=== PATIENT | male | born 1980 | race Caucasian/White ===

== ENCOUNTER 2017-07-03 20:01 | Emergency (ER) | payer OTHER ==
[~2017-07-03] VITALS: Ht 182.9 cm; Wt 91.0 kg
[2017-07-03 20:23] VITALS: TEMP 36.9; Ht 182.9 cm; Wt 91.0 kg
[2017-07-03] MEDS ORDERED: GLC/500 PO (20:33)
[2017-07-03] MEDS ORDERED: GLIP5TAB11 PO ×3 (20:33→23:09)
[2017-07-03] MEDS ORDERED: SODIUM CHLORIDE 0.9% 1000ML 2,000 ML IV STA (20:48)
[2017-07-03 20:58] LABS: BASO % 0.3 %; BASO ABS # 0.04 K/uL (0-0.2); EOS % 3.4 %; EOS ABS # 0.47 K/uL (0-0.5); HEMATOCRIT 44.5 % (42-52); HEMOGLOBIN 16.3 g/dL (14.0-18.0); IG# 0.05 K/uL (0.00-0.02); LYMPH % 27.8 %; LYMPH ABS # 3.89 K/uL (1.2-3.4); MEAN CELL VOLUME 81.2 fL (80-100); MEAN CORPUSCULAR HEMOGLOBIN 29.7 pg (25-34); MEAN CORPUSCULAR HGB CONC 36.6 g/dl (32-36); MEAN PLATELET VOLUME 11.8 fL (7.4-10.4); MONO % 7.3 %; MONO ABS # 1.02 K/uL (0.11-0.59); NEUT % 60.8 %; NEUT ABS # 8.52 K/uL (1.4-6.5); PLATELET COUNT 208 K/uL (130-400); RED CELL DISTRIBUTION WIDTH CV 12.7 % (11.5-14.5); RED CELL DISTRIBUTION WIDTH SD 37.2 fL (36.4-46.3); WHITE BLOOD COUNT 13.99 K/uL (4.8-10.8)
[2017-07-03 21:15] LABS: ALBUMIN 4.1 gm/dl (3.4-5.0); CALCIUM 9.2 mg/dl (8.5-10.1); CREATININE 1.36 mg/dl (0.60-1.40); POTASSIUM 4.2 mmol/L (3.5-5.1); TOTAL PROTEIN 7.8 gm/dl (6.4-8.2)
[2017-07-03] MEDS ORDERED: NovoLIN-R INSULIN PER UNIT CHARGE SQ STA (21:17)
[2017-07-03 21:18] VITALS: O2SAT 98
--- NOTE | 2017-07-03 21:49 | DIAGNOSTIC IMAGING REPORT ---
CHEST 2 VIEWS ROUTINE CLINICAL HISTORY: cough, eval PNA dyspnea COMPARISON STUDY: No previous studies for comparison. FINDINGS: The bones soft tissues and hemidiaphragms are normal. The cardiomediastinal silhouette is normal. The lungs are clear. The pulmonary vasculature is normal. IMPRESSION: Negative chest. The above report was generated using voice recognition software. It may contain grammatical, syntax or spelling errors. Electronically signed by: Matt Chávez M.D. 07/03/2017 9:48 PM Dictated Date/Time: 07/03/2017 9:48 PM
[2017-07-03] MEDS ORDERED: METF1000 PO ×2 (23:07→23:09)
--- NOTE | 2017-07-03 23:10 | EMERGENCY ROOM VISIT NOTE ---
History First contact with patient: 20:39 Chief Complaint: HYPERGLYCEMIA Stated Complaint: BLOOD SUGAR HIGH Nursing Triage Summary: pt states he has had diabetes for "a couple years." states he takes metformin and glipizide. states he has been out of glipizie and states "i wasn't taking the metformin either because they work together." c/o blurry vision, thirst, frequent urination. pt alert and oriented x4, breathing WNL. History of Present Illness The patient is a 36 year old male who presents to the Emergency Room with complaints of increased thirst, frequent urination, and blurry vision for the past 4-5 days. Patient states that he is diabetic, was diagnosed over a year ago and was placed on metformin and glipizide. He states that he ran out of these medications a little over a week ago. He is from [place], but is in town on a or contract for the next few months. He states he does not have a primary care provider back in [place], so he had no one to call for refills. He states that he has been checking his blood sugars the last few days and they have been high, over 400. He reports that he has gotten blurry vision in the past with high blood sugars. He denies any headaches, neck pain or stiffness, chest pain , shortness of breath, back pain, dizziness or syncope, abdominal pain, nausea or vomiting, diarrhea, dysuria, or rash. He denies any other medical problems. He states "I am mostly here to get refills of my medicine since I ran out." He denies any recent illnesses, cough, sore throat, congestion, fevers or chills. Review of Systems A complete 10 point review of systems was reviewed with the patient with pertinent positives and negatives as per history of present illness. All else were negative. Past Medical/Surgical History Diabetes mellitus type 2 Social History Smoking Status: Current Every Day Smoker Alcohol Use: none Drug Use: none Marital Status: Occupation Status: employed Current/Historical Medications Scheduled Glipizide (Glucotrol), 5 MG PO TIDM Glipizide (Glucotrol), 1 TAB PO BID Metformin Hcl (Glucophage), 500 MG PO TIDM Metformin Hcl (Glucophage), 1 TAB PO BID Allergies No known allergies Physical Exam Vital Signs Date Time Temp Pulse Resp B/P (MAP) Pulse Ox O2 Delivery O2 Flow Rate FiO2 07/03/17 23:18 76 18 120/67 95 Room Air 07/03/17 21:46 80 07/03/17 21:18 84 18 139/81 98 Room Air 07/03/17 21:18 98 Room Air 07/03/17 20:23 36.9 118 18 133/96 96 Room Air Right Eye Acuity: 20/50 Left Eye Acuity: 20/25 Physical Exam CONSTITUTIONAL: Pleasant and cooperative. No acute distress. Moderately dehydrated, but otherwise well appearing and well nourished. HEENT: Normocephalic, atraumatic. Pupils equal, round and reactive to light, EOMI, normal conjunctiva bilaterally. TMs normal. Pharynx normal. Dry mucous membranes. NECK: Supple, full active range of motion without discomfort. RESPIRATORY: Clear to auscultation bilaterally with no wheezing, crackles, rhonchi or stridor. Equal expansion bilaterally. CARDIOVASCULAR: Tachycardic. Regular rhythm with no murmurs, rubs or gallops. Normal peripheral perfusion. No edema. GASTROINTESTINAL: Soft, nontender, nondistended. No palpable masses or HSM. Bowel sounds present in all quadrants. MUSCULOSKELETAL: Full range of motion of all joints without discomfort. INTEGUMENTARY: No rash or other significant dermatologic conditions noted. NEUROLOGIC: Alert and oriented X 4 with normal affect. Cranial nerves II-XII grossly intact. No focal neurologic deficits noted. Normal speech. Normal gait observed. Medical Decision & Procedures ER Provider Diagnostic Interpretation: CHEST 2 VIEWS ROUTINE CLINICAL HISTORY: cough, eval PNA COMPARISON STUDY: No previous studies for comparison. FINDINGS: The bones soft tissues and hemidiaphragms are normal. The cardiomediastinal silhouette is normal. The lungs are clear. The pulmonary vasculature is normal. IMPRESSION: Negative chest. Laboratory Results 07/03/17 20:35 Red Blood Count 5.48, Mean Corpuscular Volume 81.2, Mean Corpuscular Hemoglobin 29.7, Mean Corpuscular Hemoglobin Concent 36.6, Mean Platelet Volume 11.8, Neutrophils (%) (Auto) 60.8, Lymphocytes (%) (Auto) 27.8, Monocytes (%) (Auto) 7.3, Eosinophils (%) (Auto) 3.4, Basophils (%) (Auto) 0.3, Neutrophils # (Auto) 8.52, Lymphocytes # (Auto) 3.89, Monocytes # (Auto) 1.02, Eosinophils # (Auto) 0.47, Basophils # (Auto) 0.04 07/03/17 20:35 Test 07/03/17 20:35 07/03/17 21:02 07/03/17 22:31 White Blood Count 13.99 K/uL (4.8-10.8) Red Blood Count 5.48 M/uL (4.7-6.1) Hemoglobin 16.3 g/dL (14.0-18.0) Hematocrit 44.5 % (42-52) Mean Corpuscular Volume 81.2 fL (80-100) Mean Corpuscular Hemoglobin 29.7 pg (25-34) Mean Corpuscular Hemoglobin Concent 36.6 g/dl (32-36) Platelet Count 208 K/uL (130-400) Mean Platelet Volume 11.8 fL (7.4-10.4) Neutrophils (%) (Auto) 60.8 % Lymphocytes (%) (Auto) 27.8 % Monocytes (%) (Auto) 7.3 % Eosinophils (%) (Auto) 3.4 % Basophils (%) (Auto) 0.3 % Neutrophils # (Auto) 8.52 K/uL (1.4-6.5) Lymphocytes # (Auto) 3.89 K/uL (1.2-3.4) Monocytes # (Auto) 1.02 K/uL (0.11-0.59) Eosinophils # (Auto) 0.47 K/uL (0-0.5) Basophils # (Auto) 0.04 K/uL (0-0.2) RDW Standard Deviation 37.2 fL (36.4-46.3) RDW Coefficient of Variation 12.7 % (11.5-14.5) Immature Granulocyte % (Auto) 0.4 % Immature Granulocyte # (Auto) 0.05 K/uL (0.00-0.02) Urine Color YELLOW Urine Appearance CLEAR (CLEAR) Urine pH 6.5 (4.5-7.5) Urine Specific [place] 1.030 (1.000-1.030) Urine Protein NEG (NEG) Urine Glucose (UA) 3+ (NEG) Urine Ketones NEG (NEG) Urine Occult Blood NEG (NEG) Urine Nitrite NEG (NEG) Urine Bilirubin NEG (NEG) Urine Urobilinogen NEG (NEG) Urine Leukocyte Esterase NEG (NEG) Anion Gap 7.0 mmol/L (3-11) Est Creatinine Clear Calc Drug Dose 84.0 ml/min Estimated GFR () 78.1 Estimated GFR (Non- 67.4 BUN/Creatinine Ratio 12.2 (10-20) Calcium Level 9.2 mg/dl (8.5-10.1) Magnesium Level 2.0 mg/dl (1.8-2.4) Total Bilirubin 0.6 mg/dl (0.2-1) Aspartate Amino Transf (AST/SGOT) 17 U/L (15-37) Alanine Aminotransferase (ALT/SGPT) 34 U/L (12-78) Alkaline Phosphatase 160 U/L (45-117) Total Protein 7.8 gm/dl (6.4-8.2) Albumin 4.1 gm/dl (3.4-5.0) Globulin 3.7 gm/dl (2.5-4.0) Albumin/Globulin Ratio 1.1 (0.9-2) Lipase 752 U/L (73-393) Beta-Hydroxybutyric Acid 1.53 mg/dL (0.2-2.81) Chemistry Specimen Hemolysis Venous Blood pH 7.41 (7.36-7.41) Venous Blood Partial Pressure CO2 43 mmHg (38.0-50.0) Venous Blood Partial Pressure O2 57 mmHg Venous Blood HCO3 27 mmol/L Venous Blood Oxygen Saturation 88.1 % Venous Blood Base Excess 1.8 mEq/L Lactic Acid Level 1.8 mmol/L (0.4-2.0) Bedside Glucose 373 mg/dl (70-99) Medications Administered Medications (Trade) Dose Ordered Sig/Tomy Route Start Time Stop Time Status Last Admin Dose Admin Sodium Chloride 2,000 ml @ 999 mls/hr Q2H1M STAT IV 07/03/17 20:48 07/03/17 22:48 DC 07/03/17 21:06 999 MLS/HR Insulin Human Regular (novoLIN-R U-100 PER UNIT) 10 units NOW STAT SQ 07/03/17 21:17 07/03/17 21:18 DC 07/03/17 21:51 10 UNITS Medical Decision CC: Patient presenting with complaint of high blood sugar, frequent urination, increased thirst, blurry vision Interpretation of Labs: Leukocytosis, no anemia, significant hyperglycemia with hyponatremia, no other significant electrolyte abnormality, gap is closed, normal renal function, mildly elevated alkaline phosphatase and lipase, otherwise normal liver enzymes. Slightly elevated serum ketones. pH is normal on VBG. UA shows large glucose, otherwise negative. Differential Diagnosis: Includes, but not limited to hyperglycemia, DKA, dehydration, electrolyte abnormality, poor medication compliance, among others. Medication Reconciliation: I attest that I have personally reviewed the patient' s current medication list. Vital signs review: I reviewed the patient's vital signs and interpret them as follows: T: Afebrile; BP: Hypertensive; HR: Tachycardic; RR: Within normal limits; Pulse Ox: Within normal limits on room air. Blood pressure screening: The patient was found to have an elevated blood pressure, this was felt to be situational. Summary: Patient was evaluated at bedside, history and physical exam performed. Patient is alert and oriented, no acute distress, resting, in the stretcher. Patient complaining of blurry vision, however visual acuity is grossly intact, he is able to read normal print at close and at a distance. Neurologic exam is normal, no focal deficits. Orders were placed at bedside for labs, UA, IV fluids for hydration, CXR to evaluate for pna. Patient discussed with Dr. Novoa, who agrees with my assessment and plan. Labs reviewed as above, notable for significant hyperglycemia, but no evidence of DKA. CXR is unremarkable, no acute abnormality. Subsequent reassessment of blood glucose after subcutaneous insulin and IV fluids shows improvement, patient also reports resolution of blurry vision and feeling better. He is tolerating oral fluids without difficulty. Patient reassessed multiple times throughout ED stay, he remained stable. His tachycardia is improved after IV fluids. His hyperglycemia is downtrending and less than 400 after intervention. Patient was updated on all results and plan for discharge, he was provided with refills of his diabetes medications, as well as provided with local resources for PCP follow-up while he is in town. Patient was strongly encouraged to follow-up, and was also given strict return precautions should his symptoms worsen, he verbalized understanding. The patient was discharged home in stable condition and ambulatory. Head Trauma GCS Score: 15 Medication Reconcilliation Current Medication List: was personally reviewed by me Impression Primary Impression: Hyperglycemia Departure Information Dispostion Home / Self-Care Condition GOOD Prescriptions Metformin Hcl (GLUCOPHAGE) 1,000 Mg Tab 1 TAB PO BID for 30 Days, #60 TAB 0 Refills Prov: Nichol Joe CRNP 07/03/17 Glipizide (GLUCOTROL) 5 Mg Tab 1 TAB PO BID for 30 Days, #60 TAB 0 Refills Prov: Nichol Joe CRNP 07/03/17 Referrals No Doctor, Assigned (PCP) Patient Instructions ED Hyperglycemia Diabetic, My [facility] Additional Instructions You were treated in the emergency department today for your high blood sugar. You have been provided with refills of your medications to treat your diabetes. Please take these as prescribed. You were provided with information for some walk-in clinics in the area where you may follow-up. Please follow-up in the next few days. Please return to the emergency department for worsening symptoms, including severe pain, persistent vomiting or diarrhea, fevers > 101.5, confusion, weakness, severe dizziness or passing out, or any other concerns. Work Instructions Return To Work: 1 day
[2017-07-03 23:18] VITALS: BP 120/67; PULSE 76; O2SAT 95
== END 2017-07-03 23:29 | disposition home or self-care (01) ==
LOC: C.EDB 20:05 → C.EDC 23:29
DX: E11.65 Type 2 diabetes mellitus with hyperglycemia (principal); Z79.84 Long term (current) use of oral hypoglycemic drugs; F17.210 Nicotine dependence, cigarettes, uncomplicated; E86.0 Dehydration